=== PATIENT | male | born 1965 | race Caucasian/White ===

== ENCOUNTER 2017-03-01 06:11 | Observation (INO) | payer BC ==
[2017-02-28 09:41] LABS: ASPARTATE AMINO TRANSFERASE 27 U/L (15-37); BLOOD UREA NITROGEN 19 mg/dL (7-18)
[~2017-03-01] VITALS: Ht 180.3 cm; Wt 80.5 kg
[~2017-03-01 06:11] MED LIST: ASPI-496 PO; ATOR40TA78 PO; CHOL100011 PO; DULA0.75 SC; ESOM40CA PO; GLIM2TAB2 PO; LISI-167 PO; METF750T2 PO; MULT-658 PO; vitamin D PO
[2017-03-01] MEDS ORDERED: NEOSPORIN OINT, 15GM ONE (06:49)
[2017-03-01] MEDS ORDERED: LIDOCAINE/PF 1.5%-EPI 1:200K, 30ML ONE (06:49)
[2017-03-01] MEDS ORDERED: LIDOCAINE 0.5%-EPI 1:200K, 50ML ONE (06:49)
[2017-03-01] MEDS ORDERED: LACTATED RINGERS 1,000 ML IV SCH (08:05)
[2017-03-01 08:30] VITALS: BP 151/87
[2017-03-01] MEDS ORDERED: CLINDAMYCIN PMX 900MG/50ML 50 ML IVPB ONE (08:30)
[2017-03-01] MEDS ORDERED: FENTANYL PF 250 MCG/5ML ONE (11:25)
[2017-03-01] MEDS ORDERED: MIDAZOLAM 1 MG/ML, 2ML ONE (11:25)
[2017-03-01] MEDS ORDERED: ONDANSETRON 2MG/ML, 2ML ONE (11:41)
[2017-03-01] MEDS ORDERED: CEFAZOLIN 1,000 MG ONE (11:41)
[2017-03-01] MEDS ORDERED: SUCCINYLCHOLINE 20 MG/ML, 10ML ONE (11:41)
[2017-03-01] MEDS ORDERED: PROPOFOL 10 MG/ML, 20ML ONE (11:41)
[2017-03-01] MEDS ORDERED: METOPROLOL 1 MG/ML, 5ML IV PRN (12:30)
[2017-03-01] MEDS ORDERED: PROMETHAZINE 25 MG/ML, 1ML IV PRN (12:30)
[2017-03-01] MEDS ORDERED: OXYcodone 5 MG/5 ML ORAL.SOL UDC PO PRN (12:30)
[2017-03-01] MEDS ORDERED: ACETAMINOPHEN 325 MG TABLET PO PRN (12:30)
[2017-03-01] MEDS ORDERED: KETOROLAC 30 MG/1 ML IV PRN (12:30)
[2017-03-01] MEDS ORDERED: hydrALAzine 20 MG/ML, 1ML IV PRN (12:30)
[2017-03-01] MEDS ORDERED: ALBUTEROL SULFATE 2.5 MG/3 ML NPPB PRN (12:30)
[2017-03-01] MEDS ORDERED: OXYMETAZOLINE NASAL SPRAY 0.05%, 15ML ONE (12:39)
[2017-03-01] MEDS ORDERED: OXYcodone 5 MG/5 ML ORAL.SOL UDC ONE (13:17)
[2017-03-01] MEDS ORDERED: FENTANYL PF 100 MCG/2ML ONE (13:17)
[2017-03-01] MEDS ORDERED: KETOROLAC 30 MG/1 ML ONE (13:18)
[2017-03-01] MEDS: FENTANYL PF 100 MCG/2ML IV PRN ×2 (13:20→13:30)
[2017-03-01] MEDS ORDERED: HYDROmorphone 1 MG/ML, 1ML ONE (13:34)
[2017-03-01] MEDS: HYDROmorphone 1 MG/ML, 1ML IV PRN ×2 (13:40→13:50)
[2017-03-01 14:05] VITALS: BP 134/88
[2017-03-01] MEDS ORDERED: MORPHINE SULFATE 4 MG/ML, 1ML IVPush PRN (15:00)
[2017-03-01] MEDS ORDERED: DIPHENHYDRAMINE 50 MG/ML, 1ML IVPush PRN (15:00)
[2017-03-01] MEDS ORDERED: ONDANSETRON 2MG/ML, 2ML IVPush PRN (15:00)
[2017-03-01] MEDS: LACTATED RINGERS 1,000 ML IV SCH (16:51)
[2017-03-01 18:44] VITALS: BP 134/84
[2017-03-01] MEDS: GLIMEPIRIDE 1 MG TABLET PO SCH (20:29)
[2017-03-01] MEDS ORDERED: ATORVASTATIN 40 MG TABLET PO SCH (21:00)
[2017-03-01] MEDS ORDERED: HYDR473S51 PO (23:53)
[2017-03-01] MEDS ORDERED: ONDA4TAB10 PO (23:54)
[2017-03-02 00:14] VITALS: BP 130/75
[2017-03-02] MEDS: LACTATED RINGERS 1,000 ML IV SCH ×2 (01:05→09:35)
[2017-03-02 07:16] VITALS: BP 134/79
[2017-03-02] MEDS ORDERED: PANTOPROZOLE 40MG TABLET PO SCH (07:30)
[2017-03-02] MEDS ORDERED: CHOLECALCIFEROL 1,000 UNIT TABLET PO SCH (09:00)
[2017-03-02] MEDS ORDERED: metFORMIN 500 MG TABLET PO SCH (09:00)
[2017-03-02] MEDS ORDERED: MULTIVITAMIN 1 TABLET PO SCH (09:00)
[2017-03-02] MEDS: HYDROcodone/APAP 7.5-325MG/15ML UDC PO PRN ×2 (09:45→15:32)
[2017-03-02] MEDS: GLIMEPIRIDE 1 MG TABLET PO SCH (09:45)
[2017-03-02 15:17] VITALS: BP 125/82
[2017-03-02] MEDS ORDERED: CLIN300C93 PO (16:41)
[2017-03-02 17:25] VITALS: BP 132/79
[2017-03-05] MEDS ORDERED: DULAGLUTIDE SC SCH (20:30)
== END 2017-03-02 18:05 | disposition home or self-care (01) ==
LOC: OUT 06:11 → 4NOR 14:10 → OUT 21:43
PROVIDERS: ADMIT Otolaryngology; ATTEND Otolaryngology
DX: R13.10 Dysphagia, unspecified (principal); K22.0 Achalasia of cardia; I10 Essential (primary) hypertension; E11.9 Type 2 diabetes mellitus without complications; E78.5 Hyperlipidemia, unspecified
CPT/HCPCS: 36415; 42808; 43030; 80053; 82962; 93005; 96374; C1767; G0378; J0330; J0690; J1170; J1885; J2250; J2405; J2704; J3010; J3490; J7120